=== PATIENT | female | born 1940 | race Caucasian/White ===

== ENCOUNTER 2017-08-10 11:02 | Inpatient (IN) | payer MEDICARE ==
[2017-08-10] MEDS ORDERED: NS 0.9% 1000 ML* 1,000 ML IV ONE (11:23)
--- NOTE | 2017-08-10 11:55 | RAD ---
Indication: Overdose, history of KS. Single frontal view of the chest performed at 1140 hours was reviewed. Comparison is made with previous exam dated April 01, 2015. No mediastinal shift is noted. Heart is of normal size and configuration. Lung douglas appear clear. IMPRESSION: NO ACTIVE CARDIOPULMONARY DISEASE IS NOTED.
[2017-08-10 12:00] LABS: ABS Basophils 0.1 10^3/ul (0-0.2); ABS Eosinophils 0.2 10^3/ul (0-0.6); ABS Lymphocytes 1.2 10^3/ul (1.0-4.8); ABS Monocytes 0.6 10^3/ul (0-0.8); ABS Neutrophils 8.7 10^3/ul (1.5-7.7); ABS Nucleated RBC 0 10^3/ul; Hematocrit 43 % (35-47); Lymphocyte % 11.4 % (25-47); Mean Corpuscular HGB Conc 35 g/dl (31-36); Mean Corpuscular Hemoglobin 32 pg (27-31); Mean Corpuscular Volume 91 fL (80-97); Mean Platelet Volume 8.4 um3 (7.4-10.4); Nucleated Red Blood Cells % 0; Platelet Count 254 10^3/ul (150-450); Red Blood Count 4.71 10^6/ul (4.0-5.4); Red Cell Distribution Width 12 % (10.5-15); White Blood Count 10.8 10^3/ul (3.5-10.8)
[2017-08-10 12:05] LABS: INR 1.04 (0.77-1.02)
[2017-08-10 12:15] LABS: EGFR Non-African American 74.9 (>60)
--- NOTE | 2017-08-10 12:48 | RAD ---
Indication: Fall, overdose. CT of the brain was performed without IV contrast. Comparison is made with previous exam dated October 17, 2012. Ventricular structures are midline. No midline shift is noted. The extra-axial spaces are unremarkable. There is no evidence of intracranial mass or hemorrhage. Periventricular lucency consistent with chronic ischemic White matter change is noted. No calvarial fracture is noted. Mastoid air cells are well aerated. Mucosal thickening and fluid is noted in the left sphenoid sinus, ethmoid air cells. Mucosal thickening of the maxillary sinuses is noted. IMPRESSION: Chronic ischemic White matter change. No intracranial mass or hemorrhage is noted. Chronic and acute sinusitis with fluid in the left sphenoid sinus and mucosal thickening in the ethmoid air cells and maxillary sinuses.
--- NOTE | 2017-08-10 12:50 | RAD ---
Indication: Fall, neck injury CT of the cervical spine was obtained in the axial plane. Sagittal and coronal reconstructed images were obtained. No prior study is available for comparison. The skull base demonstrates no fracture. Mastoid air cells are well aerated. External auditory canals are intact. The C1 ring is intact. The vertebral bodies appear normal in height. No evidence of fracture is noted. This space narrowing at C6-C7 is noted with osteophyte formation. No focal protrusion is identified. Spinous processes are unremarkable. IMPRESSION: No fracture of the cervical spine is noted. Degenerative disc disease a C6-C7 is noted.
[2017-08-10] MEDS ORDERED: Acetaminophen TAB* 325 MG PO PRN (14:08)
[2017-08-10] MEDS ORDERED: NS 0.9% 1000 ML* 1,000 ML IV SCH (14:15)
--- NOTE | 2017-08-10 14:40 | ED ---
Edy Rowland Stephanie, scribed for Elisabeth Ashraf MD on 08/10/17 at 1124 . Complex/Multi-Sys Presentation - HPI Summary HPI Summary: The pt is a 76 y/o F BIBA to the ED with c/o fall that occurred earlier today. The pt states she tripped on something in her home and was unable to get up. She was alert and oriented upon EMS arrival, and a neighbor had helped pt off the floor. EMS waited for the pt's family to arrive at the pt's home. As EMS was leaving, the family found a suicide note written by the pt. EMS stated pt told them she was taking her medications (bottle of alprazolam 0.5mg brought in ) as planned yesterday. Pt lives alone. EMS is unaware if she has been taking her mediations appropriately. Pt 126/75 in ambulance. Per EMS, the pt intermittently fell asleep in the ambulance. The pt states she does not remember writing a note to her family. She denies depression, SI or wanting to . She denies taking extra pills. 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 The pt states last night she had small glasses of wine. Denies CP, SOB, cough, fever and LERMA. Glucose per EMS was 103. - History Of Current Complaint Chief Complaint: EDAltMentalStatus Time Seen by Provider: 08/10/17 11:14 Hx Obtained From: Patient, Family/Circle Saw Operator - daughter, EMS Onset/Duration: Gradual Onset, Lasting Hours, Still Present Timing: Constant Severity Currently: Moderate Severity Initially: Moderate Location: Negative Aggravating Factor(s): nothing Alleviating Factor(s): nothing Associated Signs And Symptoms: Positive: Other - Negative: SOB. Negative: Headache, Cough, Chest Pain, Fever - Allergies/Home Medications Allergies/Adverse Reactions: Allergies Allergy/AdvReac Type Severity Reaction Status Date / Time codeine Allergy Heartburn Verified 08/10/17 13:21 warfarin Allergy Nausea And Verified 08/10/17 13:21 Vomiting Home Medications: Home Medications ALPRAZolam TAB* [Xanax TAB*] 0.5 - 1 mg PO BEDTIME PRN MDD 2 08/10/17 [History Confirmed 08/10/17] Nitroglycerin TAB 0.4 MG* 0.4 mg SL Q5M PRN 08/10/17 [History Confirmed 08/10/17 ] PMH/Surg Hx/FS Hx/Imm Hx Previously Healthy: No Endocrine/Hematology History: Denies: Hx Diabetes Cardiovascular History: Reports: Hx Myocardial Infarction Denies: Hx Congestive Heart Failure, Hx Hypertension Sensory History: Denies: Hx Legally Blind EENT History: Denies: Hx Deafness Psychiatric History: Reports: Hx Anxiety - Surgical History Surgery Procedure, Year, and Place: TRUE, APPY - Family History Known Family History: Positive: Other - Alzheimer's Negative: Renal Disease - Social History Occupation: Retired Lives: Alone Alcohol Use: Occasionally Hx Substance Use: No Substance Use Type: Reports: None Hx Tobacco Use: Yes Smoking Status (MU): Light Every Day Tobacco Smoker Have You Smoked in the Last Year: Yes Review of Systems Negative: Fever Negative: Chest Pain Negative: Shortness Of Breath, Cough Gastrointestinal: Negative Genitourinary: Negative Negative: Headache Positive: Depressed All Other Systems Reviewed And Are Negative: Yes Physical Exam - Summary Physical Exam Summary: Appearance: Ill-appearing, no pain distress, Well-nourished, Pt is drowsy, but responds to verbal stimuli, speech slightly slurred, but understandable and coherent Skin: Warm, color reflects adequate perfusion Head: Normal Head/Face inspection, atraumatic Eyes: Conjunctiva clear, PERRL, EOMI ENT: Normal inspection Neck: Supple, no nodes, no JVD, nontender spines Respiratory: Lungs clear, Normal breath sounds, no respiratory distress, snoring respirations but responds appropriately when stimulated Cardio: RRR, No murmur, pulses normal, brisk capillary refill Abdomen: soft, nontender Bowel sounds: present Musculoskeletal: Strength Intact/ ROM intact. No calf tenderness. No edema. Psychological: sleepy, depressed Neuro: Alert, O x 3, CN II-XII intact, Motor 5/5, Sensation intact, Reflexes 2+ symmetric, muscle tone normal, no focal deficit, NIH score of ZERO Triage Information Reviewed: Yes Vital Signs On Initial Exam: Initial Vitals Temp Pulse Resp BP Pulse Ox 97.7 F 65 16 151/83 96 08/10/17 11:13 08/10/17 11:13 08/10/17 11:13 08/10/17 11:13 08/10/17 11:13 Vital Signs Reviewed: Yes Diagnostics - Vital Signs Vital Signs Temp Pulse Resp BP Pulse Ox 08/10/17 12:00 67 15 98 08/10/17 11:18 69 96 08/10/17 11:17 66 151/83 96 08/10/17 11:13 97.7 F 65 16 151/83 96 - Laboratory Lab Results: Lab Results 08/10/17 08/10/17 08/10/17 Range/Units 11:49 11:49 11:49 WBC (3.5-10.8) 10^3/ul RBC (4.0-5.4) 10^6/ul Hgb (12.0-16.0) g/dl Hct (35-47) % MCV (80-97) fL MCH (27-31) pg MCHC (31-36) g/dl RDW (10.5-15) % Plt Count (150-450) 10^3/ul MPV (7.4-10.4) um3 Neut % (Auto) (38-83) % Lymph % (Auto) (25-47) % Creek % (Auto) (0-7) % Eos % (Auto) (0-6) % Baso % (Auto) (0-2) % Absolute Neuts (auto) (1.5-7.7) 10^3/ul Absolute Lymphs (auto) (1.0-4.8) 10^3/ul Absolute Monos (auto) (0-0.8) 10^3/ul Absolute Eos (auto) (0-0.6) 10^3/ul Absolute Basos (auto) (0-0.2) 10^3/ul Absolute Nucleated RBC 10^3/ul Nucleated RBC % INR (Anticoag Therapy) 1.04 H (0.77-1.02) Sodium (139-145) mmol/L Potassium (3.5-5.0) mmol/L Chloride (101-111) mmol/L Carbon Dioxide (22-32) mmol/L Anion Gap (2-11) mmol/L BUN (6-24) mg/dL Creatinine (0.51-0.95) mg/dL Est GFR ( Amer) (>60) Est GFR (Non-Af Amer) (>60) BUN/Creatinine Ratio (8-20) Glucose (70-100) mg/dL Lactic Acid 1.6 (0.5-2.0) mmol/L Calcium (8.6-10.3) mg/dL Magnesium (1.9-2.7) mg/dL Total Bilirubin (0.2-1.0) mg/dL AST (13-39) U/L ALT (7-52) U/L Alkaline Phosphatase (34-104) U/L Ammonia 33 (16-53) mcmol/L Total Creatine Kinase (10-223) U/L Troponin I (<0.04) ng/mL Total Protein (6.4-8.9) g/dL Albumin (3.2-5.2) g/dL Globulin (2-4) g/dL Albumin/Globulin Ratio (1-3) TSH (0.34-5.60) mcIU/mL Salicylates (<30) mg/dL Acetaminophen mcg/mL Serum Alcohol (<10) mg/dL 08/10/17 08/10/17 Range/Units 11:49 11:49 WBC 10.8 (3.5-10.8) 10^3/ul RBC 4.71 (4.0-5.4) 10^6/ul Hgb 15.0 (12.0-16.0) g/dl Hct 43 (35-47) % MCV 91 (80-97) fL MCH 32 H (27-31) pg MCHC 35 (31-36) g/dl RDW 12 (10.5-15) % Plt Count 254 (150-450) 10^3/ul MPV 8.4 (7.4-10.4) um3 Neut % (Auto) 80.8 (38-83) % Lymph % (Auto) 11.4 L (25-47) % Creek % (Auto) 5.3 (0-7) % Eos % (Auto) 2.0 (0-6) % Baso % (Auto) 0.5 (0-2) % Absolute Neuts (auto) 8.7 H (1.5-7.7) 10^3/ul Absolute Lymphs (auto) 1.2 (1.0-4.8) 10^3/ul Absolute Monos (auto) 0.6 (0-0.8) 10^3/ul Absolute Eos (auto) 0.2 (0-0.6) 10^3/ul Absolute Basos (auto) 0.1 (0-0.2) 10^3/ul Absolute Nucleated RBC 0 10^3/ul Nucleated RBC % 0 INR (Anticoag Therapy) (0.77-1.02) Sodium 135 L (139-145) mmol/L Potassium 3.8 (3.5-5.0) mmol/L Chloride 107 (101-111) mmol/L Carbon Dioxide 26 (22-32) mmol/L Anion Gap 2 (2-11) mmol/L BUN 10 (6-24) mg/dL Creatinine 0.75 (0.51-0.95) mg/dL Est GFR ( Amer) 96.4 (>60) Est GFR (Non-Af Amer) 74.9 (>60) BUN/Creatinine Ratio 13.3 (8-20) Glucose 95 (70-100) mg/dL Lactic Acid (0.5-2.0) mmol/L Calcium 9.3 (8.6-10.3) mg/dL Magnesium 2.0 (1.9-2.7) mg/dL Total Bilirubin 0.80 (0.2-1.0) mg/dL AST 30 (13-39) U/L ALT 26 (7-52) U/L Alkaline Phosphatase 134 H (34-104) U/L Ammonia (16-53) mcmol/L Total Creatine Kinase 105 (10-223) U/L Troponin I 0.04 H* (<0.04) ng/mL Total Protein 6.7 (6.4-8.9) g/dL Albumin 4.0 (3.2-5.2) g/dL Globulin 2.7 (2-4) g/dL Albumin/Globulin Ratio 1.5 (1-3) TSH 0.74 (0.34-5.60) mcIU/mL Salicylates < 2.50 (<30) mg/dL Acetaminophen < 15 mcg/mL Serum Alcohol < 10 (<10) mg/dL Result Diagrams: 08/10/17 11:49 08/10/17 11:49 Lab Statement: Any lab studies that have been ordered have been reviewed, and results considered in the medical decision making process. - Radiology CXR Xray Interpretation: No Acute Changes Radiology Interpretation Completed By: Radiologist - NO ACTIVE CARDIOPULMONARY DISEASE IS NOTED. ED physician has reviewed this report. - CT Cervical Spine CT Interpretation: No Acute Changes CT Interpretation Completed By: Radiologist - No fracture of the cervical spine is noted. Degenerative disc disease a C6-C7 is noted. ED physician has reviewed this report. Brain CT Interpretation: Positive (See Comments) CT Interpretation Completed By: Radiologist - Chronic ischemic White matter change. No intracranial mass or hemorrhage is noted. Chronic and acute sinusitis with fluid in the left sphenoid sinus and mucosal thickening in the ethmoid air cells and maxillary sinuses. ED physician has reviewed this report. - EKG 11:31 Cardiac Rate: NL EKG Rhythm: Sinus Rhythm - [address] Segment: Non-Specific Ectopy: None EKG Interpretation: nml AVIVCT, nml QTc, and L axis -35 EKG Comparison: No Significant Change - 04/01/15 Re-Evaluation - Re-Evaluation First Eval Re-Evaluation Time: 12:54 Change: Unchanged - Pt is sleepy but rousable. She does not remember why she is in the hospital. She is able to respond with full sentences. The pt was surprised when she was told she left a suicide note but after the note was described to her she states she remembered writing the note. Complex Multi-Symp Course/Dx Course Of Treatment: Based on pill count, the pt has taken 10 more alprazolam than she should have for this date. ED physician will assume overdose due to the pts sleepiness. Will get CT brain and CT C-spine to rule out bleed or fracture due to hx of fall. The pt is not on anticoagulants. Will call poison control and check labs. The pt will need medical admission followed by psychiatric clearance. At 12:24, ED physician is aware of the pt's troponin of 0.04. At 12:31, the pt was accepted for admission by Dr. Gonzalez. - Diagnoses Provider Diagnoses: Overdose, Elevated troponin, Altered mental status - Physician Notifications Discussed Care Of Patient With: Jermaine Gonzalez Time Discussed With Above Provider: 12:30 Instructed by Provider To: Admit As Inpatient Discharge - Sign-Out/Discharge Documenting (check all that apply): Discharge - Discharge Plan Condition: Stable Disposition: ADMITTED TO [facility] - Billing Disposition and Condition Condition: STABLE [place] [place] The documentation as recorded by the Edy vila Stephanie accurately reflects the service I personally performed and the decisions made by , Elisabeth Ashraf MD.
[2017-08-10 15:22] LABS: Urine Appearance Clear; Urine Blood Negative (Negative); Urine Color Yellow; Urine Ketones Negative (Negative); Urine Protein Negative (Negative); Urine Specific Gravity 1.009 (1.010-1.030); Urine Urobilinogen Negative (Negative)
[2017-08-10] MEDS: Heparin VIAL(*) 5000 UNITS/ML VIAL (FIVE THOUSAND) SUBCUT SCH ×2 (16:09→22:23)
--- NOTE | 2017-08-10 16:12 | HP ---
CC: JESSICA Hou* HISTORY AND PHYSICAL: DATE OF ADMISSION: 08/10/17 PROVIDER: Curt Renteria NP ATTENDING PHYSICIAN: Dr. Gonzalez* (report dictated by Curt Renteria NP) PRIMARY CARE PROVIDER: JESISCA Hou CHIEF COMPLAINT: Overdose. HISTORY OF PRESENT ILLNESS: Ms. Jensen is a 76-year-old female with a past medical history of anxiety, depression, panic attacks, possible angina, who presents to the emergency department today via EMS after the family found a suicide note written by the patient and there were 10 Xanax pills missing from her pill bottle. It is unclear who called EMS and the patient on examination does not remember, there is no family at the bedside and they are unable to be reached by telephone. However, it was reported by the patient that she fell and EMS was called. Per ER physician, Dr. Ashraf, the daughter was there when the ambulance arrived and found a suicide note and noted there were 10 Xanax pills missing out of her bottle and she was extremely drowsy. Per a neighbor, he heard a thud sometime in the night and is unclear if the patient was down on the ground for an extended period of time. The patient arrived to the emergency department around 11:23 a.m. On evaluation in the emergency department, the patient initially denied suicide attempt and did not remember taking the pills. On my evaluation, she does admit to leaving a note stating that she felt very depressed and had some conflict with both of her sons and felt "anxious and depressed and hopeless." However, she does not remember how many pills she took. Currently, she reports that she feels very drowsy and her body feels "heavy" and reports that she has been mostly sleeping since she has been in the emergency department. Per ER physician and ER nurses, she has been very drowsy in the emergency department and does wake to verbal stimuli. On my evaluation, the patient does appear to be drowsy. She fell asleep during our conversation and also is noted to be slightly confused. When asked if she still works, she states yes but then is not able to remember where she works. She underwent a head CT and cervical spine , which is unremarkable. EKG shows no acute changes. Poison Control was called. Recommendation is supportive treatment and close monitoring. She is also noted to have an elevated troponin at 0.04. At this point, she will be admitted to the hospitalist service for overdose of benzodiazepine. She is stable, but drowsy. EKG shows no QT or ST changes. At this point, it will be supportive treatment only, close monitoring, and Psych consultation. There is a questionable history of angina. I do see she has nitroglycerin on her med list, but she is unable to tell me a much better history other than she states she has never had a heart attack before. Looking back through her history, it appears that she has had this longstanding anxiety and panic attacks with chronic abdominal pain and chest pain and has been worked up for this before in the past. However, due to her troponin of 0.04, we will monitor troponins and EKGs. Again, the patient currently denies feeling suicidal and states "I was just having a bad day." PAST MEDICAL HISTORY: Depression; anxiety; panic attacks; history of chronic abdominal and chest pain appears per distant notes in 2008, she has had multiple workups for this; hyperlipidemia. PAST SURGICAL HISTORY: 1. Cholecystectomy in 1964. 2. Tonsillectomy at 7 years of age. 3. D and C x2. 4. Status post cataract surgery. CURRENT MEDICATIONS: 1. Nitroglycerin 0.4 mg sublingual q.5 minutes p.r.n. 2. Xanax 0.5 to 1 mg p.o. at bedtime. ALLERGIES: , WARFARIN. FAMILY HISTORY: Both her parents lived into their 90s. SOCIAL HISTORY: She continues to smoke 1 pack of cigarettes a day. She reports she drinks 2 small glasses of wine daily. Denies recreational drug use. She lives alone, she reports that she currently works but is unable to tell me where. She is not , lives alone. She has 4 grown children. She names her daughter, Daphnie, as her healthcare proxy. REVIEW OF SYSTEMS: A 14-point review of systems was performed. All the pertinent positives and negatives as mentioned in the history of present illness , otherwise negative. PHYSICAL EXAMINATION GENERAL APPEARANCE: A well-developed, elderly female lying in bed, she is alert and oriented x3, but appears drowsy, slightly confused. VITAL SIGNS: Temperature 97.7, heart rate 72, respirations 15, O2 sat 96% on room air, blood pressure 141/72. HEENT: Head is normocephalic and atraumatic. Pupils are equal and reactive to light. Oropharynx is clear. Moist mucous membranes. NECK: Supple. LUNGS: Clear to auscultation bilaterally. Good aeration throughout. CARDIAC: S1 and S2. Regular rate and rhythm. No murmurs, rubs, or gallops appreciated. No lower extremity edema noted. ABDOMEN: Soft, nontender, and nondistended. Normal bowel sounds throughout. MUSCULOSKELETAL: No clubbing or cyanosis noted. Full range of motion. NEURO: Cranial nerves II through XII are grossly intact. PSYCH: Alert and oriented x3. Noted confusion. Slightly anxious. SKIN: Warm, pink, and dry. No rashes, lesions, or open wounds noted. DIAGNOSTIC STUDIES/LAB DATA: Sodium 135, potassium 3.8, chloride 107, carbon dioxide 26, anion gap 2, BUN 10, creatinine 0.75, glucose 95, lactic acid 1.6, calcium 9.3, magnesium 2.0. Total bilirubin 0.80, AST 30, ALT 26, alkaline phosphatase 134. Ammonia 33. Total creatine kinase 105. Troponin 0.04. Total protein 6.7. TSH 0.74. INR 1.04. WBC is 10.8, RBC is 4.71, Hgb is 15, _ ____ 43, MCV 91, MCH 32, platelet count 254. Toxicology negative for salicylates, negative for acetaminophen, and negative serum alcohol. Imaging: Cervical spine CT, impression: No fracture of the cervical spine is noted. Degenerative disk disease C6-C7 is noted. Chest x-ray, impression: No active cardiopulmonary disease is noted. Brain CT, impression: Chronic ischemic white matter change. No intracranial mass or hemorrhage is noted. Chronic acute sinusitis and fluid in the left sphenoid sinus and mucosal thickening in the ethmoid air cells and maxillary sinuses. EKG: Sinus rhythm, at a rate of 67. No acute ST changes. QTc is 464. ASSESSMENT AND PLAN: Ms. Jensen is a 76-year-old female with a past medical history of hyperlipidemia, depression, anxiety, panic attacks, chronic abdominal pain, and possible history of angina ?, who presents to the emergency department today after being found in her apartment with a suicide note and suspect she took 10 1-mg Xanax pills. 1. Overdose on benzodiazepines. The patient is drowsy, but she is alert and oriented. She has some mild confusion. I do think that she should be monitored in the intensive care unit for close monitoring. Poison Control was called, recommended supportive treatment. Her EKG is normal. She has no QTc prolongation. We will monitor on telemetry. She has a Psych consult pending. She will be monitored on a one-to-one. She currently denies feeling suicidal. However, we do have a copy of the suicide note she left and it is very clear that she was attempting to commit suicide. 2. Elevated troponin. The patient denies any chest pain. Her cardiac history is unclear, I do see she has sublingual nitro on her med list, but it appears that she has a history of angina in the past. Per the patient, she denies a history of coronary artery disease. We will trend troponins and EKGs. 3. Hyperlipidemia. Currently not on any medications. 4. Depression and anxiety. Plan to hold Xanax. We need to obtain a full med list as the patient is alone in the emergency department and we do not have a current med list. 5. Tobacco abuse. The patient denies wanting nicotine replacement. Smoking cessation. 6. DVT prophylaxis. Heparin subcu. 7. Disposition. Inpatient to ICU. TIME SPENT: Approximately 60 minutes was spent on this admission. This case was discussed with Dr. Gonzalez, who agrees with the plan of care. I will put an order to contact JESSICA Hou office for current medical records. Please note that the patient did state that she only was seen by him once and prior to that, she was followed at [facility]. CURT RENTERIA, MAURY [id number]/[facility] #: [id number] OMAYRA
[2017-08-10] MEDS ORDERED: hydrALAZINE IV* 20 MG/ML VIAL IV SLOW PU PRN (19:16)
[2017-08-11] MEDS: Heparin VIAL(*) 5000 UNITS/ML VIAL (FIVE THOUSAND) SUBCUT SCH ×3 (05:10→20:18)
[2017-08-11 05:36] LABS: ABS Basophils 0.1 10^3/ul (0-0.2); ABS Eosinophils 0.4 10^3/ul (0-0.6); ABS Lymphocytes 2.2 10^3/ul (1.0-4.8); ABS Monocytes 0.4 10^3/ul (0-0.8); ABS Neutrophils 3.2 10^3/ul (1.5-7.7); ABS Nucleated RBC 0 10^3/ul; Eosinophil % 6.5 % (0-6); Hematocrit 38 % (35-47); Hemoglobin 13.1 g/dl (12.0-16.0); Mean Corpuscular HGB Conc 35 g/dl (31-36); Mean Corpuscular Hemoglobin 32 pg (27-31); Mean Corpuscular Volume 92 fL (80-97); Mean Platelet Volume 8.6 um3 (7.4-10.4); Nucleated Red Blood Cells % 0; Platelet Count 214 10^3/ul (150-450); Red Blood Count 4.12 10^6/ul (4.0-5.4); Red Cell Distribution Width 12 % (10.5-15); White Blood Count 6.3 10^3/ul (3.5-10.8)
[2017-08-11 05:52] LABS: EGFR Non-African American 82.5 (>60)
--- NOTE | 2017-08-11 11:20 | PN ---
Subjective Date of Service: 08/11/17 Interval History: Pt feels well. Stated that she tried to end her life due to a disagreement between her children. Doesn't remember what pills exactly she took. Feels well. Was a little unsteady on her feet today Objective Active Medications: Acetaminophen (Tylenol Tab*) 650 mg PO Q6H PRN PRN Reason: FEVER/PAIN Aspirin (Aspirin 81 Mg Chew Tab*) 81 mg PO DAILY [facility] Heparin Sodium (Porcine) (Heparin Vial(*)) 5,000 units SUBCUT Q8HR [place] Last Admin: 08/11/17 05:10 Dose: 5,000 units Hydralazine HCl (Apresoline Iv*) 5 mg IV SLOW PU Q6H PRN PRN Reason: BLOOD PRESSURE Vital Signs - 8 hr 08/11/17 08/11/17 08/11/17 04:00 04:01 05:33 Temperature 99.3 F 97.9 F Pulse Rate 75 79 81 Respiratory 20 Rate Blood Pressure 148/75 160/69 (mmHg) O2 Sat by Pulse 98 96 95 Oximetry 08/11/17 07:57 Temperature 97.9 F Pulse Rate 78 Respiratory 12 Rate Blood Pressure 133/55 (mmHg) O2 Sat by Pulse 97 Oximetry Oxygen Devices in Use Now: None Appearance: 76 yo F in NAD, AAOx3, forgetful Eyes: No Scleral Icterus, PERRLA Ears/Nose/Mouth/Throat: NL Teeth, Lips, Gums, Mucous Membranes Moist Neck: NL Appearance and Movements; NL JVP, Trachea Midline Respiratory: Symmetrical Chest Expansion and Respiratory Effort, Clear to Auscultation Cardiovascular: NL Sounds; No Murmurs; No JVD, RRR Abdominal: NL Sounds; No Tenderness; No Distention Lymphatic: No Cervical Adenopathy Extremities: No Edema, No Clubbing, Cyanosis Skin: No Rash or Ulcers, No Nodules or Sclerosis Neurological: Alert and Oriented x 3, NL Muscle Strength and Tone Result Diagrams: 08/11/17 05:05 08/11/17 05:05 Additional Lab and Data: Lab Results 08/10/17 08/10/17 08/10/17 Range/Units 11:49 11:49 11:49 WBC (3.5-10.8) 10^3/ul RBC (4.0-5.4) 10^6/ul Hgb (12.0-16.0) g/dl Hct (35-47) % MCV (80-97) fL MCH (27-31) pg MCHC (31-36) g/dl RDW (10.5-15) % Plt Count (150-450) 10^3/ul MPV (7.4-10.4) um3 Neut % (Auto) (38-83) % Lymph % (Auto) (25-47) % [place] % (Auto) (0-7) % Eos % (Auto) (0-6) % Baso % (Auto) (0-2) % Absolute Neuts (auto) (1.5-7.7) 10^3/ul Absolute Lymphs (auto) (1.0-4.8) 10^3/ul Absolute Monos (auto) (0-0.8) 10^3/ul Absolute Eos (auto) (0-0.6) 10^3/ul Absolute Basos (auto) (0-0.2) 10^3/ul Absolute Nucleated RBC 10^3/ul Nucleated RBC % INR (Anticoag Therapy) 1.04 H (0.77-1.02) Sodium (139-145) mmol/L Potassium (3.5-5.0) mmol/L Chloride (101-111) mmol/L Carbon Dioxide (22-32) mmol/L Anion Gap (2-11) mmol/L BUN (6-24) mg/dL Creatinine (0.51-0.95) mg/dL Est GFR ( Amer) (>60) Est GFR (Non-Af Amer) (>60) BUN/Creatinine Ratio (8-20) Glucose (70-100) mg/dL Lactic Acid 1.6 (0.5-2.0) mmol/L Calcium (8.6-10.3) mg/dL Magnesium (1.9-2.7) mg/dL Total Bilirubin (0.2-1.0) mg/dL AST (13-39) U/L ALT (7-52) U/L Alkaline Phosphatase (34-104) U/L Ammonia 33 (16-53) mcmol/L Total Creatine Kinase (10-223) U/L Troponin I (<0.04) ng/mL Total Protein (6.4-8.9) g/dL Albumin (3.2-5.2) g/dL Globulin (2-4) g/dL Albumin/Globulin Ratio (1-3) TSH (0.34-5.60) mcIU/mL Salicylates (<30) mg/dL Acetaminophen mcg/mL Serum Alcohol (<10) mg/dL 08/10/17 08/10/17 Range/Units 11:49 11:49 WBC 10.8 (3.5-10.8) 10^3/ul RBC 4.71 (4.0-5.4) 10^6/ul Hgb 15.0 (12.0-16.0) g/dl Hct 43 (35-47) % MCV 91 (80-97) fL MCH 32 H (27-31) pg MCHC 35 (31-36) g/dl RDW 12 (10.5-15) % Plt Count 254 (150-450) 10^3/ul MPV 8.4 (7.4-10.4) um3 Neut % (Auto) 80.8 (38-83) % Lymph % (Auto) 11.4 L (25-47) % [place] % (Auto) 5.3 (0-7) % Eos % (Auto) 2.0 (0-6) % Baso % (Auto) 0.5 (0-2) % Absolute Neuts (auto) 8.7 H (1.5-7.7) 10^3/ul Absolute Lymphs (auto) 1.2 (1.0-4.8) 10^3/ul Absolute Monos (auto) 0.6 (0-0.8) 10^3/ul Absolute Eos (auto) 0.2 (0-0.6) 10^3/ul Absolute Basos (auto) 0.1 (0-0.2) 10^3/ul Absolute Nucleated RBC 0 10^3/ul Nucleated RBC % 0 INR (Anticoag Therapy) (0.77-1.02) Sodium 135 L (139-145) mmol/L Potassium 3.8 (3.5-5.0) mmol/L Chloride 107 (101-111) mmol/L Carbon Dioxide 26 (22-32) mmol/L Anion Gap 2 (2-11) mmol/L BUN 10 (6-24) mg/dL Creatinine 0.75 (0.51-0.95) mg/dL Est GFR ( Amer) 96.4 (>60) Est GFR (Non-Af Amer) 74.9 (>60) BUN/Creatinine Ratio 13.3 (8-20) Glucose 95 (70-100) mg/dL Lactic Acid (0.5-2.0) mmol/L Calcium 9.3 (8.6-10.3) mg/dL Magnesium 2.0 (1.9-2.7) mg/dL Total Bilirubin 0.80 (0.2-1.0) mg/dL AST 30 (13-39) U/L ALT 26 (7-52) U/L Alkaline Phosphatase 134 H (34-104) U/L Ammonia (16-53) mcmol/L Total Creatine Kinase 105 (10-223) U/L Troponin I 0.04 H* (<0.04) ng/mL Total Protein 6.7 (6.4-8.9) g/dL Albumin 4.0 (3.2-5.2) g/dL Globulin 2.7 (2-4) g/dL Albumin/Globulin Ratio 1.5 (1-3) TSH 0.74 (0.34-5.60) mcIU/mL Salicylates < 2.50 (<30) mg/dL Acetaminophen < 15 mcg/mL Serum Alcohol < 10 (<10) mg/dL Microbiology and Other Data: Microbiology 08/10/17 16:10 Nasal Screen MRSA (PCR)(KEO) - Final Nasal Mrsa Not Detected Assess/Plan/Problems-Billing Assessment: 76 yo F with h/o CAD and anxiety presented lethargic after an intentional overdose with Xanax - Patient Problems (1) Overdose Comment: With Xanax, intentional Back to baseline Ordered PT to eval ambulation Psychiatry to see pt (2) Troponin I above reference range Comment: indeterminate at 0.04, suspect of no clinical significance. EKG shows no ischemic chnages. Restarted ASA Echo ordered and pending (3) DVT prophylaxis Comment: HSQ Status and Disposition: OBV
--- NOTE | 2017-08-11 11:31 | ECHO ---
Patient: BLAIR PÉREZ [facility] Rec#: [id number] : 1940 Date: 08/11/2017 Age: 76y Height: 157.48 cm / 62.0 in Weight: 64.86 kg / 143.0 lbs Sex: F BSA: 1.66 Room#: 404 Admit Date#: 08/11/2017 Type: Inpatient Referring: Cordelia Hannah MD Reading: Gallito Lagos MD Legal Editor: Donna RodriguezDANIEL Transthoracic Echocardiogram Indication: ACS BP: 133/55 HR: 71 Rhythm: NSR with PVCs Findings History: HLD, smoker, angina, anxiety/depression. Technical Comments: The study quality is fair. The study is technically limited due to the patient's smoking history. Completed at 1100. Left Ventricle: The left ventricular chamber size is normal. Mild concentric left ventricular hypertrophy is observed. Global left ventricular wall motion and contractility are within normal limits. There is normal left ventricular systolic function. The estimated ejection fraction is 55-60%. Abnormal left ventricular diastolic function is observed. Abnormal left ventricular diastolic filling is observed, consistent with impaired relaxation. Left Atrium: The left atrium is mildly dilated. Right Ventricle: The right ventricle wall thickness is mildly increased. The right ventricular cavity size is normal. The right ventricular global systolic function is normal. Right Atrium: The right atrium is mildly dilated. Aortic Valve: The aortic valve is trileaflet. The aortic valve leaflets are mildly thickened. There is no evidence of aortic regurgitation. There is no evidence of aortic stenosis. Mitral Valve: The mitral valve leaflets are mildly thickened. There is trace to mild mitral regurgitation. There is no evidence of mitral stenosis. Tricuspid Valve: The tricuspid valve leaflets are normal. There is a physiologic tricuspid regurgitation. Unable to estimate the right ventricular systolic pressure. There is no tricuspid stenosis. Pulmonic Valve: The pulmonic valve appears normal. There is a trace pulmonic regurgitation. There is no pulmonic stenosis. Pericardium: There is no significant pericardial effusion. A pericardial fat pad is visualized. Aorta: There is no dilatation of the ascending aorta. There is no dilatation of the aortic arch. The aortic root is normal in size. Pulmonary Artery: The main pulmonary artery is not well visualized. Venous: The inferior vena cava appears normal in size. There is a greater than 50% respiratory change in the inferior vena cava dimension. Summary: There was not any prior study for comparison. Conclusions Global left ventricular wall motion and contractility are within normal limits. There is normal left ventricular systolic function. The estimated ejection fraction is 55-60%. The right ventricular global systolic function is normal. There is no evidence of aortic stenosis. There is trace to mild mitral regurgitation. There is a physiologic tricuspid regurgitation. There is no significant pericardial effusion. Measurements Name Value Normal Range RVIDd (AP) 2D 2.9 cm (0.9 - 2.6) RVDdMajor (2D) 3.5 cm (2.2 - 4.4) RVAW (2D) 0.6 cm (0.2 - 0.5) RAd ISD 4CH 5.1 cm (3.4 - 4.9) RA (A4C)W 4.5 cm (2.9 - 4.6) IVSd (2D) 1.1 cm (0.6 - 1) LVPWd (2D) 1.1 cm (0.6 - 1) LVIDd (2D) 4.3 cm (3.6 - 5.4) LVIDs (2D) 3.2 cm - LV FS (2D) 25 % (25 - 45) Aortic Annulus 1.8 cm (1.4 - 2.6) Ao root diameter (2D) 2.7 cm (2.1 - 3.5) Ascending Ao 3.1 cm (2.1 - 3.4) Aortic arch 2.5 cm (1.8 - 3.4) LA dimension (AP) 2D 3.9 cm (2.3 - 3.8) LAd ISD 4CH 5 cm (2.9 - 5.3) LA ISD 4CH W 4 cm (2.5 - 4.5) Name Value Normal Range LA ESV SP 4CH (A/L) 29 ml - LA ESV SP 2CH (A/L) 75 ml - LA ESV BP (A/L) 52 ml - LA ESV BP (A/L) index 31 ml/m2 - LA ESV SP 4CH (MOD) 26 ml - LA ESV SP 2CH (MOD) 72 ml - Name Value Normal Range MV E-wave Vmax 0.64 m/sec - MV deceleration time 207.35 msec - MV A-wave Vmax 1.15 m/sec - MV E:A ratio 0.55 ratio - LV septal e' Vmax 0.03 m/sec - LV lateral e' Vmax 0.06 m/sec - LV E:e' septal ratio 21.33 ratio - LV E:e' lateral ratio 10.67 ratio - Name Value Normal Range AV Vmax 1.2 m/sec - AV VTI 29.24 cm - AV peak gradient 5.5 mmHg - AV mean gradient 3.7 mmHg - LVOT Vmax 0.92 m/sec - LVOT VTI 21.83 cm - LVOT peak gradient 3.38 mmHg - LVOT mean gradient 1.82 mmHg - SHAWN Vmax 0.79 m/sec - Name Value Normal Range IVC diameter 1.4 cm - Name Value Normal Range PV Vmax 0.8 m/sec - PV peak gradient 2.53 mmHg -
--- NOTE | 2017-08-11 13:50 | CONSULT ---
Identification - Patient Identification -: Patient is a 76 year old, F admitted on 08/10/17. History - Objective HPI: PSYCHIATRIC CONSULT Reason for Consultation: 76 yo woman admitted for altered mental status after falling at home in the context of suicide attempt by overdose with Xanax. patient left suicide note. patient currently on one to one observation. consultation requested to assess patient's safety and need for observation as well as recommendations for disposition when medically cleared. History of Present Illness: Maria G Jensen is a 76 yo mother of 4 adult children who lives alone in [place]. Patient has a history of anxiety and depression for which she has been prescribed xanax for sleep for many years. Patient was found unconsious by her family yesterday who subsequently called 911 before finding a suicide note left at her side. Patient ingested ten Xanax 0.5 mg tablets shortly. Patient reports that she has been feeling very stressed and upset for past 2 to 3 weeks due to son and daughter's (flynn) medical problems which has been weighing heavily on her and making her feel helpless. History was taken from patient and from patient's son in law mcmahon (Flynn's ) who would be considered fair and good historian's respectively Patient denies history of depressive symptoms in the weeks prior to overdose. She does report that her daughter Flynn has been hearing voices for past 3 months and refuses to get help. Patient did not mention daughter was alcoholic, but this provider became aware of this from patient's son in law Mcmahon. Additionally, patient's youngest son age 35 who has been working for Brother in law Mcmahon quit his job 3 weeks ago due to mental health reasons and has been burdening his mother daily with loss of his job and his resultant financial difficulties causing patient to go to her [employer] to get funds for her son. Patient denies suicidal ideation, intent or plan prior to the actual overdose. SHe reports that she received a phone call from her son the day of the overdose, subsequently drove to the [employer] to withdraw funds and her pin didn't work. She further reports that the bank has been "frequently changing her pin number" which upsets her. She further reports that she took the xanax impulsively because she felt helpless to help her children and frustrated over her inability to withdraw funds for her son. She has also been frustrated by her children's refusal to get help for their problems which she has suggested to them on numerous occasions. Patient reports that she did not intend to end her life, feels ashamed of her actions and doesn't remember taking the pills or writing a suicide note. PMH: past history of RI, takes NTG prn no other known medical probelms Allergies: codeine and warfarin Medications prior to admission: Xanax 0.5 mg two tabs qhs Nitroglycerin for chest pain PPH: limited history here. Patient denies history of psychiatric hospitalization. She reports suffering from anxiety especially social anxiety most of her life. tells me that 3 years ago she felt suicidal and was prescribed medication, perhaps antidepressant medication, by a PCP. she cannot remember his name. Last seen by Nurse practitioner Don Ginny 18 months ago and was prescribed xanax 0.5 mg two tablets at bedtime for insomnia which is effective and which she has been taking daily for past 1 to 2 years. reports that she has been increasingly forgetful over the past few years. Social/Family HIstory: Patient grew up locally and completed through 11th grade but had to leave school after becoming with first child. She had three children from first who left her to raise the children on her own. Her fourth child was from her second and she had him late at age 42. 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 SHe receives disability income due to her anxiety disorder. She denies history of physical or sexual abuse. patient's main supports are her son in law Lisandro who owns his own [employer] business. She is a "light smoker". she denies history of substance use now or in the past. she has no legal difficulties. Family Psychiatric History: daughter ETOH, hallucinations son uknown mental issue Labs/Testing: CT Brain (08/10/17) shows chronic ischemic white matter changes otherwise unremarkable EKG: no acute changes Cardiac ECHO: normal study Chest Xray: normal Urinalysis: leukoesterase positive, 1+ WBC's CBC, CMP, TSH all within normal limits Urine tox screen: +benzo -for all other drugs of abuse Mental Status Exam: well developed and nourished 76 yo woman laying supine in hospital bed. patient is dressed in hospital gown. She is conversing fluently with aid who is seated at her bedside. She is well related and makes good eye contact. Hygiene is adequate. speech: normal rate and volume. not pressured. normal fluency and spontaneity. Mood: euthymic. describes feeling anxious most of her life. Affect full range. Thought process: mostly goal directed, coherent and organized. One of her responses was not appropriate to the question asked but when repeated her response was relevant leading me to believe that she is having some hearing difficulties. Thought content: denies amotivation, anergy, restlessness, eating difficulties, current suicidal ideation, intention or plan, homicidal ideation, AH, VH, delusions or paranoid ideation. reports she also suffered from anxiety especially when she has to be outside with people. she denies somatic complaints or chronic pain. she reports increasing forgetfulness past few years. Cognition: fully alert. Oriented to year, month, place/floor, person but not to date or day of the week. Concentration: "WORLD" spelled correctly first time. "DLORW" first time but when asked to try it again correctly said "DLROW". given three words with good immediate recall. remembered 0/3 after 5 minutes (was unable to remember that I had given her 3 words to remember). Insight fairly good. Judgment: currently intact. Impression: 76 yo woman with history of CAD by RI and more recent onset of anxiety, insomnia , and forgetfulness over the past few years for which she has been treated with xanax at bedtime by local pracitioner. Patient's living situation is not clear to me but I have been told by attending physician that she is living in a supportive housing community where she receives some assistance and meal are provided. Patient has moderate family stressors at this time as her alcoholic daughter and financially destitute son have been leaning on her for support which patient is ill equippted to manage given her age, and the presence of anxiety and memory difficulties likely the sequelae of ischemic vascular disease. Patient is not acutely depressed nor is she currently suicidal. 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 ok to discontinue one to one observation as patient is not acutely suicidal, or agitated. Her memory difficulties are not so severe as to require one to one observation. 2. recommend observing patient another day as her mental status is likely not back to baseline. clearance of benzodiazepines is slower in geriatric population. 3. urine C and S recommended with altered mental status and WBC's present in the urinalysis also would sent freeT4, total T4, B12 and folate levels. 4. 18 months duration of treatment with benzodiazpines is usually cutoff for requiring taper due to high risk of withdrawal syndrome including seizures. The risk for withdrawal would be increased with use of short acting benzodiazepines. since we do not have records at present time to say how long she has been receiving xanax exactly, it would be prudent to err on side of caution and start patient on low dose of long acting klonopin to prevent potential withdrawal syndrome. 0.25 mg BID would be my preference. xanax should be permanently discontinued in this patient. 5. If patient has difficulty falling asleep would use Remeron 3.75 mg (half tablet) QHS prn. may repeat X 1 after one hour 6. would observe patient another day or two to make sure she does not go into withdrawal and to reasses her mental status after xanax has cleared. 7. will follow patient daily while she is here on psychiatry service. 8. will need VNS services on discharge as well as referral for psychotherapy services 9. will also benefit from reconnecting patient with her PCP who can manage her benzodiazepine taper Lab Results: Laboratory Tests
[2017-08-11] MEDS: Potassium Chlor TAB* 20 MEQ TAB.ER PO ONE ×2 (17:05→17:39)
[2017-08-11] MEDS ORDERED: Potassium Chloride LIQUID* 20 MEQ PACKET PO ONE (17:10)
[2017-08-11] MEDS ORDERED: CMCS: Melatonin (NF) 3 MG TAB PO PRN (20:28)
[2017-08-11] MEDS ORDERED: Mirtazapine TAB* 15 MG PO SCH (21:00)
[2017-08-12] MEDS: Heparin VIAL(*) 5000 UNITS/ML VIAL (FIVE THOUSAND) SUBCUT SCH ×2 (05:27→16:23)
[2017-08-12] MEDS ORDERED: Aspirin 81 mg CHEW TAB* 81 MG TAB.CHEW PO SCH (09:00)
--- NOTE | 2017-08-12 13:57 | CONSULT ---
Identification - Patient Identification Reason for Psychiatric Consultation: Suicidal Ideation -: Patient is a 76 year old, F admitted on 08/11/17. - MHU Identification Employment Status: Disabled Hx Psychiatric Hospitalization: No History - Objective HPI: Psychiatry sees Maria G today for follow up. She continues to strongly deny SI , stating "That was the stupidest thing I've ever done in my life. I'm not doing that again." I understand that she tried to elope yesterday shortly after being taken off 1:[address] Collado. "I just don' t think I need to be here. I'm missing my TV programs." I spoke with her son- in-law, Lisandro Neville ([phone]), who indicates that Maria G is indeed under a lot of stress because her biological daughter (Lisandro's ) and son (Lisandro's employee) are struggling recently with mental illness and substance abuse issues. He reports that she had a similar episode several years ago in which she overdosed intentionally and seemed to benefit from counseling. He is agreeable with the discharge plan. This clinician also spoke with the patient' s outpatient provider, CARLENE Llamas at [facility] ([phone]), who seemed genuinely surprised that Maria G had overdosed. He was informed of the plan to refer her to community mental health services in [facility] and to discontinue her alprazolam in favor of a trial of low dose mirtazapine. He had no objections to her discharge. The patient is agreeable with visiting nursing services at her half-way apartment in [place], [place]. She similarly agrees to the med change and psychiatric follow up after discharge. Exam Appearance: Well Developed/Nourished Hygiene: Normal Grooming: Well Kept Psychomotor Activities: Normal Exhibits Abnormal Movement: No Attitude and Relatedness: Cooperative Eye Contact: Good - Speech Quality: Unpressured Latencies: Normal Quantity: Appropriate Patient's Decription of Mood: "Good" Observed Affect: Good Affect Consistent with: Euthymia Patient's Thought Process: Coherent Thought Content: No Passive Wish, No Suicidal Planning, No Homicidal Ideation, No Paranoid Ideation Experiencing Hallucinations: No, Sensorium is Clear Type of Hallucinations: Visual: No, Auditory: No, Command: No Level of Consciousness: Alert Orientation: Yes Intact, Yes Orientated to Time, Yes Orientated to Place, Yes Orientated to Person Impulse Control: Tenuous Insight and Judgement: Fair Impression - Impression Clinical Impression: 76 y.o. , white female with a history of anxiety and insomnia admitted to the hospitalist service following an intentional overdose on 10 tablets of 0.5mg alprazolam in an impulsive, unpremeditated suicide attempt. Inpatient DSM-V Dx: F43.22 Merits Inpatient Hospitalization: No Problem List - MHU Problems Type of Problem: Mood Status of Problem: Active Plan - Treatment Plan Treatment Plan: The patient is not suicidal and has access to outpatient MH care in the community. She would not benefit from inpatient psychiatric services and can likely be treated in a less restrictive setting. Psychiatry recommends discharge to home. We will decrease mirtazapine from 15 to 7.5mg PO qhs and have alerted her outpatient provider to this. We will discontinue the 1:1 observational status. We recommend SW consultation to hook her up with outpatient MH f/u near her home in [facility], which she has benefitted from in the past. Psychiatry is signing off. Thank you for allowing us to participate in the care of this patient. Continued Medication Management: Different Medication Medications: Current Medications Acetaminophen (Tylenol Tab*) 650 mg PO Q6H PRN PRN Reason: FEVER/PAIN Aspirin (Aspirin 81 Mg Chew Tab*) 81 mg PO DAILY [facility] Last Admin: 08/12/17 07:55 Dose: 81 mg Heparin Sodium (Porcine) (Heparin Vial(*)) 5,000 units SUBCUT Q8HR [facility] Last Admin: 08/12/17 05:27 Dose: 5,000 units Hydralazine HCl (Apresoline Iv*) 5 mg IV SLOW PU Q6H PRN PRN Reason: BLOOD PRESSURE Melatonin (Melatonin (Nf)) 3 mg PO BEDTIME PRN; Protocol PRN Reason: Sleep - Discharge Plan Discharge Plan: Outpatient Follow Up Outpatient Program: [facility]
[2017-08-12 16:21] VITALS: BP 184/96
[2017-08-12] MEDS ORDERED: amLODIPine TAB* 5 MG PO SCH (17:00)
--- NOTE | 2017-08-12 20:09 | DS ---
CC: JESSICA Hou; Dr. Sanchez, Psychiatry; Dr. Collado, Psychiatry* DISCHARGE SUMMARY: DATE OF ADMISSION: 08/10/17 DATE OF DISCHARGE: 08/12/17 PRIMARY CARE PROVIDER: JESSICA Hou DISCHARGE DIAGNOSIS: Xanax overdose. SECONDARY DIAGNOSIS: Anxiety. MEDICATIONS AT DISCHARGE: Include Remeron 7.5 mg p.o. q.h.s. p.r.n. The patient was given a prescription for a total of 20 tablets. LABORATORY DATA AND STUDIES PERFORMED DURING THE HOSPITAL STAY: Included on , white blood cell count of 6.3, hemoglobin of 13.1, hematocrit of 38, and platelets of 214. Sodium was 136, potassium of 3.2, chloride 108, carbon dioxide 22, BUN 9, creatinine 0.69. The patient's troponin ranged from 0.04 to 0.06. The patient's transthoracic echocardiogram showed left ventricular wall motion and contractility within normal limits with EF of 55% to 60% and no other significant changes. CONSULTATIONS: Obtained from psychiatry department, both Dr. Sanchez and Dr. Collado. HOSPITALIZATION COURSE: Maria G Jensen is a 76-year-old female with history of mild memory impairment, who also has history of anxiety. Apparently, she got upset about her children having problems and she took 10 tablets of Xanax. She came in lethargic to the emergency department, brought in by ambulance that was alerted by the patient's friend, who found her in her house. Her troponin was mildly elevated and ranged from 0.04 to 0.07 likely due to demand ischemia since the patient's transthoracic echocardiogram was unremarkable and she never complained of chest pain. By the time of discharge, she was lucid and back to her baseline, which is mildly forgetful, but very pleasant and cooperative. She underwent Physical Therapy/Occupational Therapy evaluation and she was deemed to be an acceptable candidate to be discharged back to her jail apartment. Dr. Sanchez and Dr. Collado both saw the patient in psychiatric consultation. Recommendation was for the patient to be taken off Xanax and started on Remeron. The patient was observed off Xanax and on Remeron only at night for 24 hours and she had no symptoms of benzodiazepine withdrawal. The patient is going to be discharged tonight with recommendation to follow up with her primary care provider, JESSICA Hou, within the next week. The patient was also recommended for mental health evaluation as an outpatient in [facility] and that is being arranged by case monitor. PHYSICAL EXAMINATION: At the time of discharge, blood pressure of 127/49, heart rate of 76 and regular, respiratory rate , oxygen saturation 97% on room air, temperature 98.1. General: The patient is a pleasant 76-year-old female, who is in no acute distress. Alert, awake, and oriented x3, but forgetful. HEENT: Head: Atraumatic, normocephalic. Eyes: Pupils are equal, reactive to light and accommodation. Oropharynx is clear. Mucosa moist. Neck : Supple. No JVD. No bruits bilaterally. Cardiovascular: Regular rate and rhythm. No murmur. Respiratory: Clear to auscultation bilaterally. Abdomen: Soft, nontender. Bowel sounds are present in all 4 quadrants. Extremities: There is no edema. Pulses are +2 bilaterally. No clubbing or cyanosis. On neuro evaluation, speech is clear. Cranial nerves II through XII grossly intact. Motor strength is 5/5 bilaterally. Please note that this is a short summary of the patient's hospitalization. Please refer to further medical records for details. TIME SPENT: Approximately 40 minutes was spent in preparation of the patient's discharge. [id number]/[facility] #: [id number] OMAYRA
[2017-08-12] MEDS ORDERED: Mirtazapine TAB* 15 MG PO SCH (21:00)
== END 2017-08-12 17:20 | disposition home or self-care (01) | DRG 918 ==
LOC: ED 11:02 → MEDTELE 12:32 → ICU 14:50 → MED 08-11 05:01 → OBSVTOIN 08-11 15:33
PROVIDERS: ADMIT Internal Medicine; ATTEND Internal Medicine
DX: T42.4X2A Poisoning by benzodiazepines, intentional self-harm, initial encounter (principal); R45.851 Suicidal ideations; R53.83 Other fatigue; F43.22 Adjustment disorder with anxiety; F32.9 Major depressive disorder, single episode, unspecified; F41.0 Panic disorder [episodic paroxysmal anxiety]; R74.8 Abnormal levels of other serum enzymes; F17.210 Nicotine dependence, cigarettes, uncomplicated; E78.5 Hyperlipidemia, unspecified; G47.00 Insomnia, unspecified; Z79.899 Other long term (current) drug therapy; Z88.8 Allergy status to other drugs, medicaments and biological substances; Y92.039 Unspecified place in apartment as the place of occurrence of the external cause
CPT/HCPCS: 36415; 70450; 71045; 72125; 80048; 80053; 80307; 80320; 80329; 81003; 81015; 82140; 82550; 83605; 83735; 84443; 84484; 85025; 85610; 87086; 87641; 93005; 93306; 99284; A9270-GY; G0480; G8978-GP-CH; G8978-GP-CI; G8979-GP-CH; G8980-GP-CH; G8987-GO-CI; G8988-GO-CI; G8989-GO-CI; J1644

== ENCOUNTER 2019-01-08 23:25 | Emergency (ER) | payer MEDICARE ==
[2019-01-08] MEDS ORDERED: oxyCODONE/Acetamin 5/325 MG* TAB PO ONE (23:38)
--- NOTE | 2019-01-08 23:46 | ED ---
Back Pain - HPI Summary HPI Summary: This pt is a 78 Y/O F presenting to [facility] with a CC of low back pain since and is currently rated a 5/10 in severity. She states that she was attempting to open a sofa bed and felt her back give out. She states that she has no difficulties ambulating around her house and that her lower extremities feel normal. She denies any fevers, chills, SOB, N/V, CP, and headaches. She states no aggravating or alleviating factors. She has a PMHx of HTN and MIs. - History of Current Complaint Chief Complaint: EDBackInjuryPain Stated Complaint: LOWER BACK PAIN PER EMS Time Seen by Provider: 01/08/19 23:33 Hx Obtained From: Patient Onset/Duration: Sudden Onset, Lasting Days - 3, Still Present Onset/Duration: Started Days Ago - 3 Timing: Constant Back Pain Location: Is Discrete @ - low back Severity Initially: Moderate Severity Currently: Moderate Pain Intensity: 5 Pain Scale Used: 0-10 Numeric Aggravating Symptom(s): Lifting, Other - sleeping Associated Signs And Symptoms: Positive: Negative - chills, SOB, N/V, CP, and headaches.. Negative: Fever - Allergies/Home Medications Allergies/Adverse Reactions: Allergies Allergy/AdvReac Type Severity Reaction Status Date / Time codeine Allergy Heartburn Verified 08/10/17 13:21 warfarin Allergy Nausea And Verified 08/10/17 13:21 Vomiting Home Medications: Home Medications Donepezil TAB* [Aricept 5 MG TAB*] 5 mg PO DAILY 01/08/19 [History Confirmed ] Zolpidem Tartrate 10 mg PO BEDTIME 01/08/19 [History Confirmed 01/08/19] PMH/Surg Hx/FS Hx/Imm Hx Previously Healthy: Yes Endocrine/Hematology History: Denies: Hx Diabetes Cardiovascular History: Reports: Hx Hypertension, Hx Myocardial Infarction Denies: Hx Congestive Heart Failure GI History: Denies: Hx Gall Bladder Disease - GB removed Sensory History: Reports: Hx Contacts or Glasses - glasses Denies: Hx Legally Blind, Hx Deafness, Hx Hearing Aid Opthamlomology History: Reports: Hx Contacts or Glasses - glasses Denies: Hx Legally Blind Psychiatric History: Reports: Hx Anxiety, Hx Depression, Hx Suicide Attempt - Surgical History Surgery Procedure, Year, and Place: [facility] Infectious Disease History: No Infectious Disease History: Denies: Traveled Outside the [place] in Last 30 Days - Family History Known Family History: Positive: Other - Alzheimer's Negative: Renal Disease - Social History Alcohol Use: unable to assess Hx Substance Use: No Substance Use Type: Reports: None Hx Tobacco Use: Yes Smoking Status (MU): Light Every Day Tobacco Smoker Have You Smoked in the Last Year: Yes Review of Systems Negative: Fever, Chills Negative: Chest Pain Negative: Shortness Of Breath Negative: Vomiting, Nausea Positive: Other - Low back pain Negative: Headache All Other Systems Reviewed And Are Negative: Yes Physical Exam - Summary Physical Exam Summary: Appearance: Well-appearing, Well-nourished, lying in bed comfortably Skin: Warm, dry, no obvious rash Eyes: sclera anicteric, no conjunctival pallor ENT: mucous membranes moist, pharynx appears normal Neck: Supple, nontender Respiratory: Clear to auscultation, no signs of respiratory distress Cardiovascular: Normal S1, S2. No murmurs. Normal distal pulses in tibial and radial bilaterally. Abdomen: Soft, nontender, normal active bowel sounds present Musculoskeletal: Normal, Strength/ROM Intact Neurological: A&Ox3, awake and alert, mentation is normal, speech is fluent and appropriate. Normal reflexes at feet and ankles, only one beat of clonus bilaterally. . Psychiatric: affect is normal, does not appear anxious or depressed Triage Information Reviewed: Yes Vital Signs On Initial Exam: Initial Vitals Temp Pulse Resp BP Pulse Ox 97.2 F 79 16 177/93 99 01/08/19 23:32 01/08/19 23:32 01/08/19 23:32 01/08/19 23:32 01/08/19 23:32 Vital Signs Reviewed: Yes Diagnostics - Vital Signs Vital Signs Temp Pulse Resp BP Pulse Ox 01/08/19 23:32 97.2 F 79 16 177/93 99 - Laboratory Lab Statement: Any lab studies that have been ordered have been reviewed, and results considered in the medical decision making process. - Radiology Lumbar Spine X-Ray Radiology Interpretation Completed By: ED Physician Summary of Radiographic Findings: No acture fracture. Pending offiical report. Back Pain Course/Dx - Course Course Of Treatment: This pt is a 78 Y/O F presenting to [facility] with a CC of low back pain since 01/05/19 and is currently rated a 5/10 in severity. She states that she was attempting to open a sofa bed and felt her back give out. She has normal reflexes at feet and ankles, only one beat of clonus bilaterally. Her Lumbar Spine X-Ray had no acute fracutres. There are no hard neurological findings on exam and no other red flags on history. She will be discharged home with a Dx of a lumbar strain. - Diagnoses Provider Diagnoses: Lumbar strain Discharge ED - Sign-Out/Discharge Documenting (check all that apply): Patient Departure - discharge Patient Received Moderate/Deep Sedation with Procedure: No - Discharge Plan Condition: Good Disposition: HOME Prescriptions: oxyCODONE/Acetamin 5/325 MG* [Percocet 5/325 TAB*] 1 tab PO Q4H PRN #12 tab MDD 4 PRN Reason: Pain - Severe Patient Education Materials: Low Back Strain (ED) Referrals: [facility] [Outside] - As Soon As Possible Additional Instructions: Do not take the pain medication with your ambien, and only take it for severe pain. It can make you constipated so you may want to take it with a laxative like citroma or colace. - Billing Disposition and Condition Condition: GOOD Disposition: Home - Attestation Statements Document Initiated by Alysha: Yes Documenting Cameliaibe: Bubba Carpenter Provider For Whom Alysha is Documenting (Include Credential): David Post MD Scribe Attestation: Bubba Rowland, cameliaibed for David Post MD on 01/09/19 at 1837. Scribe Documentation Reviewed: Yes Provider Attestation: The documentation as recorded by the Bubba vila accurately reflects the service I personally performed and the decisions made by me, David Post MD Status of Scribe Document: Viewed
[2019-01-09 02:30] VITALS: BP 162/86
== END 2019-01-09 02:29 | disposition home or self-care (01) ==
LOC: ED 23:25
DX: S39.012A Strain of muscle, fascia and tendon of lower back, initial encounter (principal); M54.5 Low back pain; I10 Essential (primary) hypertension; I25.2 Old myocardial infarction; Z79.899 Other long term (current) drug therapy; F41.9 Anxiety disorder, unspecified; F32.9 Major depressive disorder, single episode, unspecified; F17.210 Nicotine dependence, cigarettes, uncomplicated; X50.9XXA Other and unspecified overexertion or strenuous movements or postures, initial encounter; Y92.9 Unspecified place or not applicable
CPT/HCPCS: 72100; 99283; A9270-GY

== ENCOUNTER 2021-01-08 00:06 | Inpatient (IN) ==
[2021-01-08 00:37] LABS: ABS Basophils 0.1 10^3/ul (0-0.2); ABS Eosinophils 0.4 10^3/ul (0-0.6); ABS Lymphocytes 1.4 10^3/ul (1.0-4.8); ABS Monocytes 0.6 10^3/ul (0-0.8); ABS Neutrophils 5.6 10^3/ul (1.5-7.7); Eosinophil % 4.5 %; Hematocrit 41 % (35-47); Hemoglobin 14.1 g/dL (12.0-16.0); Lymphocyte % 17.6 %; Mean Corpuscular HGB Conc 34 g/dL (31-36); Mean Corpuscular Hemoglobin 33 pg (27-31); Mean Corpuscular Volume 96 fL (80-97); Mean Platelet Volume 8.3 fL (7.4-10.4); Nucleated Red Blood Cells % 0.1; Platelet Count 297 10^3/uL (150-450); Red Blood Count 4.28 10^6 /uL (3.70-4.87); Red Cell Distribution Width 13 % (10-15); White Blood Count 8.1 10^3/uL (3.5-10.8)
[2021-01-08 00:50] LABS: ALT 14 U/L (7-52); Albumin 3.9 g/dL (3.2-5.2); Albumin/Globulin Ratio 1.2 (1-3); Alkaline Phosphatase 108 U/L (35-149); Blood Urea Nitrogen 9 mg/dL (6-24); CO2 Carbon Dioxide 24 mmol/L (22-32); Calcium 9.2 mg/dL (8.6-10.3); Chloride 100 mmol/L (101-111); EGFR African American 63.7 (>60); EGFR Non-African American 52.6 (>60); Globulin 3.3 g/dL (2-4); Glucose 148 mg/dL (70-100); Lipase 30 U/L (11.0-82.0); Sodium 134 mmol/L (135-145); Total Protein 7.2 g/dL (6.4-8.9)
[2021-01-08 00:54] LABS: Troponin I 0.12 ng/mL (<0.03)
[2021-01-08 00:55] LABS: Anion Gap 10 mmol/L (2-11)
[2021-01-08] MEDS ORDERED: Enoxaparin 60 MG/0.6 ML SYR SUBCUT ONE (01:14)
[2021-01-08 02:05] LABS: Rapid COVID-19 Molecular Undetected (Undetected)
[2021-01-08] MEDS: Nicotine PATCH 14 MG/24 HR PATCH TRANSDERM SCH (08:07)
[2021-01-08] MEDS ORDERED: diPHENhydraMINE 25 mg TAB PO PRN (08:41)
[2021-01-08] MEDS ORDERED: NS 0.9% 1000 ml BAG 1,000 ML IV SCH (08:45)
[2021-01-08 09:13] LABS: ABS Basophils 0.1 10^3/ul (0-0.2); ABS Eosinophils 0.2 10^3/ul (0-0.6); ABS Lymphocytes 1.7 10^3/ul (1.0-4.8); ABS Monocytes 0.6 10^3/ul (0-0.8); ABS Neutrophils 3.9 10^3/ul (1.5-7.7); Eosinophil % 3.7 %; Hematocrit 39 % (35-47); Hemoglobin 13.5 g/dL (12.0-16.0); Lymphocyte % 26.4 %; Mean Corpuscular HGB Conc 35 g/dL (31-36); Mean Corpuscular Hemoglobin 33 pg (27-31); Mean Corpuscular Volume 95 fL (80-97); Mean Platelet Volume 8.2 fL (7.4-10.4); Platelet Count 274 10^3/uL (150-450); Red Blood Count 4.06 10^6 /uL (3.70-4.87); Red Cell Distribution Width 13 % (10-15); White Blood Count 6.4 10^3/uL (3.5-10.8)
[2021-01-08 09:33] LABS: Anion Gap 6 mmol/L (2-11); Blood Urea Nitrogen 10 mg/dL (6-24); CO2 Carbon Dioxide 25 mmol/L (22-32); Calcium 8.8 mg/dL (8.6-10.3); Chloride 102 mmol/L (101-111); EGFR Non-African American 66.9 (>60); Glucose 101 mg/dL (70-100); Potassium 4.1 mmol/L (3.5-5.0); Sodium 133 mmol/L (135-145)
[2021-01-08 09:34] LABS: Activated Partial Thrombo Time 34.5 seconds (26.0-38.0); INR 1.23 (0.86-1.15)
[2021-01-08 09:40] LABS: Troponin I 1.38 ng/mL (<0.03)
[2021-01-08] MEDS ORDERED: fentaNYL 100 mcg/2 ml 50 MCG/ML VIAL ONE (11:08)
[2021-01-08] MEDS ORDERED: Midazolam 5 mg/5 ml VIAL 1 mg/ml 5 ml VIAL (5 mg) ONE (11:08)
[2021-01-08] MEDS ORDERED: VERAPAMIL 2.5 MG/ML 2 ML VIAL ** 5 mg/2 ml ONE (11:08)
[2021-01-08] MEDS ORDERED: Heparin 1,000 UNIT/ML 10 ml (10,000 UNITS) CATHLAB/DIALYSIS ONE (11:08)
[2021-01-08] MEDS ORDERED: Lidocaine 1% VIAL 10 MG/ML VIAL ONE (11:09)
[2021-01-08] MEDS ORDERED: Heparin 2 UNITS/ML 1000 mls 2,000 ML IV ONE (11:09)
[2021-01-08] MEDS ORDERED: Iohexol 350 (CONTRAST) 200 ML MDV IV ONE ×2 (11:09→12:09)
[2021-01-08] MEDS ORDERED: nitroGLYCERIN DRIP 25,000 MCG/250 ML BTL ONE (11:09)
[2021-01-08] MEDS ORDERED: niCARdipine 0.1MG/ML IVPREMIX 20 MG/200 ML BAG IV ONE (12:26)
[2021-01-08] MEDS ORDERED: Heparin 2 UNITS/ML 1000 mls 1,000 ML IV ONE (12:52)
[2021-01-08] MEDS ORDERED: Ondansetron 4 mg VIAL 2 MG/ML 2 ml VIAL ONE (12:57)
[2021-01-08] MEDS ORDERED: Enoxaparin 60 MG/0.6 ML SYR SUBCUT SCH (13:00)
[2021-01-08] MEDS ORDERED: Ondansetron 4 mg VIAL 2 MG/ML 2 ml VIAL IV PRN (13:10)
[2021-01-08] MEDS ORDERED: Metoprolol Tartrate 5 mg VIAL 5 ml VIAL (1 mg/ml) IV PRN (15:07)
[2021-01-08] MEDS ORDERED: Metoprolol Tartrate 5 mg VIAL 5 ml VIAL (1 mg/ml) IV ONE (16:51)
[2021-01-08 17:42] LABS: Magnesium 1.9 mg/dL (1.9-2.7)
[2021-01-09 04:22] LABS: ABS Basophils 0.1 10^3/ul (0-0.2); ABS Eosinophils 0.2 10^3/ul (0-0.6); ABS Lymphocytes 0.8 10^3/ul (1.0-4.8); ABS Monocytes 0.6 10^3/ul (0-0.8); ABS Neutrophils 5.3 10^3/ul (1.5-7.7); Eosinophil % 2.3 %; Hematocrit 38 % (35-47); Lymphocyte % 11.5 %; Mean Corpuscular HGB Conc 34 g/dL (31-36); Mean Corpuscular Hemoglobin 33 pg (27-31); Mean Corpuscular Volume 97 fL (80-97); Mean Platelet Volume 8.1 fL (7.4-10.4); Nucleated Red Blood Cells % 0.1; Platelet Count 261 10^3/uL (150-450); Red Blood Count 3.96 10^6 /uL (3.70-4.87); Red Cell Distribution Width 13 % (10-15); White Blood Count 6.9 10^3/uL (3.5-10.8)
[2021-01-09 04:38] LABS: Anion Gap 7 mmol/L (2-11); Blood Urea Nitrogen 8 mg/dL (6-24); CO2 Carbon Dioxide 23 mmol/L (22-32); Calcium 8.7 mg/dL (8.6-10.3); Chloride 103 mmol/L (101-111); EGFR African American 102.2 (>60); EGFR Non-African American 84.5 (>60); Glucose 112 mg/dL (70-100); Magnesium 1.8 mg/dL (1.9-2.7); Potassium 3.6 mmol/L (3.5-5.0); Sodium 133 mmol/L (135-145)
[2021-01-09] MEDS ORDERED: KCL 20 MEQ/100 ML IVPREMIX 20 MEQ/100 ML BAG IV ONE (05:22)
[2021-01-09] MEDS ORDERED: Potassium Chlor 20 meq TAB.ER PO ONE (05:22)
[2021-01-09] MEDS ORDERED: Magnesium Sulfate IV 3 GM in NS 0.9% 100 ml BAG 100 ML IVPB ONE (05:22)
[2021-01-09] MEDS: Multivitamins/Minerals TAB PO SCH (07:34)
[2021-01-09] MEDS: Nicotine PATCH 14 MG/24 HR PATCH TRANSDERM SCH (07:39)
[2021-01-09] MEDS ORDERED: Haloperidol 5 mg/ml SDV IV/IM 5 MG/ML AMP IV SLOW PU ONE (15:58)
[2021-01-09] MEDS ORDERED: Haloperidol 5 mg/ml SDV IV/IM 5 MG/ML AMP ONE (15:59)
[2021-01-09] MEDS ORDERED: Lorazepam PYXIS KEY PRN (20:46)
[2021-01-09] MEDS ORDERED: LORazepam 2 mg VIAL 1 ml IV PUSH ONE (20:46)
[2021-01-10] MEDS ORDERED: Haloperidol 5 mg/ml SDV IV/IM 5 MG/ML AMP IV SLOW PU ONE (00:19)
[2021-01-10] MEDS: Multivitamins/Minerals TAB PO SCH (08:12)
[2021-01-10] MEDS: Nicotine PATCH 14 MG/24 HR PATCH TRANSDERM SCH (08:13)
[2021-01-10 08:22] LABS: ABS Eosinophils 0.1 10^3/ul (0-0.6); ABS Lymphocytes 0.8 10^3/ul (1.0-4.8); ABS Monocytes 0.5 10^3/ul (0-0.8); ABS Neutrophils 5.2 10^3/ul (1.5-7.7); Eosinophil % 1.8 %; Hematocrit 38 % (35-47); Hemoglobin 13.1 g/dL (12.0-16.0); Lymphocyte % 11.5 %; Mean Corpuscular HGB Conc 35 g/dL (31-36); Mean Corpuscular Hemoglobin 33 pg (27-31); Mean Corpuscular Volume 96 fL (80-97); Mean Platelet Volume 8.1 fL (7.4-10.4); Nucleated Red Blood Cells % 0.1; Platelet Count 252 10^3/uL (150-450); Red Blood Count 3.93 10^6 /uL (3.70-4.87); Red Cell Distribution Width 13 % (10-15); White Blood Count 6.5 10^3/uL (3.5-10.8)
[2021-01-10 08:38] LABS: Calcium 8.8 mg/dL (8.6-10.3); EGFR African American 100.5 (>60); Potassium 3.8 mmol/L (3.5-5.0)
[2021-01-10 16:53] VITALS: BP 192/85
== END 2021-01-10 13:43 | disposition home health service (06) | DRG 251 ==
LOC: ED 00:06 → MEDTELE 02:16 → SUATTDRO 02:16 → MEDTELE 03:09 → ICU 13:36
PROVIDERS: ADMIT Internal Medicine; ATTEND Internal Medicine Critical Care Medicine